=== PATIENT | male | born 1970 | race Caucasian/White ===

== ENCOUNTER 2022-09-08 07:27 | Day surgery (SDC) | payer OTHER ==
[~2022-09-08] VITALS: Ht 185.4 cm; Wt 116.7 kg
[2022-09-08] MEDS ORDERED: LAMICTAL 100MG100 MG PO (08:26)
[2022-09-08] MEDS ORDERED: GLUCOPHAGE1000 MG PO (08:27)
[2022-09-08 09:35] VITALS: BP 145/97; PULSE 82; TEMP 97.9
--- NOTE | 2022-09-08 09:35 | NUR ---
0935 PATIENT RETURNS TO ROOM 2 VIA CART. PATIENT IS ALERT AND ORIENTED. PATINET IS IN ROOM. PATIENT AMBULATES BACK TO RECLINER WITH THE ASSISTANCE OF 2 NURSES. RESPIRATIONS EVEN AND UNLABORED. VITAL SIGNS OBTAINED. 0940 PATIENT REQUESTED A MUFFIN AND GRAPE JUICE. NO DIFFICULTIES SWALLOWING. 0950 THIS NURSE DISCONTINUED IV FROM RIGHT FOREARM WITH NO DIFFICULTIES. 0955 THIS NURSE DISCUSSED DISCHARGE INSTRUCTIONS WITH PATIENT AND PATIENT . BOTH VERBALIZED UNDERSTANDING WITH NO FURTHER QUESTIONS OR CONCERNS. 1000 PATIENT DRESSES SELF. 1006 DOCTOR IN TO SPEAK WITH PATIENT AND PATIENT . 1010 PATIENT DISCHARGES FROM UNIT VIA WHEELCHAIR.
[2022-09-08 09:50] VITALS: BP 147/110; PULSE 83
[2022-09-08 10:05] VITALS: BP 145/100; PULSE 77
[2022-09-08 10:55] VITALS: BP 136/100; PULSE 97; TEMP 97.9
== END 2022-09-08 10:10 | disposition home or self-care (01) ==
LOC: SDCO 07:27
DX: Z12.11 Encounter for screening for malignant neoplasm of colon (principal); K64.0 First degree hemorrhoids; E11.9 Type 2 diabetes mellitus without complications; F17.200 Nicotine dependence, unspecified, uncomplicated
CPT/HCPCS: J2704; J7120